=== PATIENT | female | born 1960 | race Caucasian/White ===

== ENCOUNTER 2025-06-12 11:04 | Day surgery (SDC) | payer MEDICARE ==
[2025-06-05 10:54] LABS: MEAN PLATELET VOLUME 7.4 FL (7.4-10.4); PRE OP HEMATOCRIT 43.7 % (35.0-45.0); PRE OP HEMOGLOBIN 14.5 g/dL (12.0-16.0); PRE OP PLATELET COUNT 262 X10'3 (140-440); PRE OP WHITE BLOOD COUNT 8.9 10'3 (4.8-10.8); RED CELL DISTRIBUTION WIDTH 17.6 % (11.5-14.5)
[2025-06-05 11:09] LABS: PRE OP INR 1.0 INR; PRE OP PARTIAL THROMB. TIME 23.0 SECONDS (22-32); PRE OP PROTIME 10.4 SECONDS (9.0-12.0)
[2025-06-05 11:28] LABS: CREATININE 0.44 MG/DL (0.40-0.90); PRE OP ALT 26 U/L (30-65); PRE OP ANION GAP 9 (8-16); PRE OP AST 14 U/L (10-37); PRE OP BILIRUB, TOTAL 0.5 MG/DL (0.0-1.0); PRE OP GLUCOSE 87 MG/DL (70-104); PRE OP POTASSIUM 3.8 MMOL/L (3.4-5.1); PRE OP SODIUM 136 MMOL/L (135-145); TOTAL CARBON DIOXIDE 26.5 MMOL/L (24-32); eGFR > 90 ML/MIN
[2025-06-12] VITALS (22 sets, daily range): BP systolic 142–201; BP diastolic 78–114; PULSE 81–108; RESP 10–16; TEMP 97.3; O2SAT 91–100
[~2025-06-12] VITALS: Ht 154.9 cm; Wt 83.1 kg
[2025-06-12] MEDS: ceFAZolin 2gm/dext,iso 50mL 50 ML IV ONE (05:30)
[~2025-06-12 11:04] MED LIST: DEXA1TAB PO; LEVE750T PO; LOSA25TA41 PO; albuterol 2.5 MG/3 ML nebule NEB ONE
[2025-06-12] MEDS ORDERED: LIDOcaine 1% (10mg/ml)w/preservative inj. 20ml MDV ONE (11:13)
[2025-06-12] MEDS ORDERED: BUPIVAcaine/PF 2.5mg/ml (0.25%) 10ml vial ONE (11:14)
[2025-06-12] MEDS ORDERED: BUPIVACAINE liposomal/PF 13.3 MG/ML 10mL vial IM ONE (11:14)
[2025-06-12] MEDS: ringers solution, lacted 1,000 ML IV SCH (12:25)
[2025-06-12] MEDS ORDERED: albuterol 2.5 MG/3 ML nebule NEB ONE (12:30)
--- NOTE | 2025-06-12 13:10 | ELECTROCARDIOGRAPH REPORT ---
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 DON Blue Measurements Intervals [place] Rate: 78 P: 69 IN: 163 QRS: 17 QRSD: 89 T: 33 QT: 381 QTc: 434 Interpretive Statements Sinus rhythm Probable left atrial enlargement RSR' in V1 or V2, right VCD or RVH Borderline T abnormalities, anterior leads Electronically Signed On 06-12-2025 16:30:[address] DON Blue Please click the below link to view image of tracing.
[2025-06-12] MEDS ORDERED: meperidine/PF 25mg/ml syringe IV PRN (13:30)
[2025-06-12] MEDS ORDERED: ringers solution, lacted 1,000 ML IV SCH (13:30)
[2025-06-12] MEDS ORDERED: HYDROmorphone/PF 0.2 MG/ML SYRINGE IV PRN ×2 (13:30)
[2025-06-12] MEDS ORDERED: fentaNYL/PF 50MCG/1 ML 2ML syringe ONE ×2 (14:28→15:23)
[2025-06-12] MEDS ORDERED: dexamethasone sod phosphate 4mg/ml inj. ONE (14:44)
[2025-06-12] MEDS ORDERED: ePHEDrine 50MG/ML INJ. ONE (14:44)
[2025-06-12] MEDS ORDERED: midazolam 1 mg/ML 2ml injection ONE (14:44)
[2025-06-12] MEDS ORDERED: LIDOcaine 2% (20mg/ml) 5ml vial ONE (14:45)
[2025-06-12] MEDS ORDERED: propofol inj 20 ML IV ONE (14:45)
[2025-06-12] MEDS ORDERED: ondansetron/PF 4mg/2ml inj ONE (14:45)
[2025-06-12] MEDS: labetalol 20mg/4ml (5mg/ml) syringe IV PRN (15:53)
[2025-06-12] MEDS: fentaNYL/PF 50MCG/1 ML 2ML syringe IV PRN ×2 (15:57→16:08)
[2025-06-12] MEDS: hydrALAZINE 20mg/ml inj. IV PRN (16:15)
[2025-06-12] MEDS: acetaminophen 1,000mg/100ml IV 100 ML IV PRN (16:28)
[2025-06-12] MEDS: ondansetron/PF 4mg/2ml inj IV PRN (16:48)
--- NOTE | 2025-06-12 17:24 | OPERATIVE REPORT ---
Operative Report Providers to ~ Date of Procedure: Jun 12, 2025 Pre-Operative Diagnosis: Left anterior wall mass, left anterior skin tag Post-Operative Diagnosis SAME as PRE-Op Procedure Performed Excision of left anterior chest skin tag, excision of left anterior chest wall neoplasm. Surgeon: Bhavik Howe DO Paper Stripper None Anesthesiologist: Muna Hightower Findings: As per operative dictation Complications None Estimated Blood Loss: Less than 5 cc Specimen Removed: 1) Left chest skin tag 2) Left anterior chest wall mass Description of Procedure: 65 years old female presents for excision of left anterior chest wall mass and excision of left chest skin tag. The risks and benefits of the planned procedure were presented including but not limited to infection, bleeding, recurrence and non resolution of signs and symptoms. She was given the opportunity to ask questions and all her questions were answered to her satisfaction and present time. After informed consent was obtained, patient received a dose of prophylactic IV antibiotics. Patient then brought to the operating room placed in a supine position. After general LMA anesthesia was administered, sequential compression devices were placed on lower extremities. The whole left anterior chest was prepped and draped as per usual sterile OR technique. The skin tag was addressed first. Excision was performed using sharp dissection with a 15 blade scalpel. Hemostasis was controlled using Bovie cautery. The incision was then closed with interrupted 3-0 nylon horizontal mattress suture. The large left anterior chest wall mass was addressed. Greatest dimension approximately 3 cm. A vertical elliptical incision to include the skin of the mass was drawn. A 15 blade scalpel was then used to make the incision down to the subcutaneous layer. Careful dissection continued to completely excise the mass. The mass did not involve the fascia of the pectoralis muscle. Hemostasis was controlled using Bovie cautery as well as LigaSure device. The excised mass was marked with suture. Short suture for superior margin, long suture for lateral margin, and double stitch for deep margin. This was sent for specimen. Next undermining was performed to allow for adequate approximation of the skin. The subcutaneous layer was approximated using interrupted 3-0 Vicryl sutures. The skin incision was closed with combination of 3-0 nylon horizontal mattress sutures as well as 4-0 nylon interrupted sutures. Mastisol and Steri-Strips were placed, followed by 4 x 4 dressing and Tegaderm. Steri-Strips, and a Band- Aid was placed over the skin tag incision. Patient tolerated procedure well, was extubated and brought to the PACU in stable condition. Counts repoted as correct: Yes BHAVIK HOWE DO Jun 12, 2025 17:24
[2025-06-12] MEDS: scopolamine 1MG/72H patch 1 PATCH PATCH.TD.3 TD SCH (17:37)
[2025-06-12] MEDS: HYDROcodone/acetaminophen 5mg/325mg tablet PO ONE (17:48)
== END 2025-06-12 18:04 | disposition home or self-care (01) ==
LOC: PRE-OP 11:04
PROVIDERS: ATTEND Surgery
DX: L91.8 Other hypertrophic disorders of the skin (principal); R22.2 Localized swelling, mass and lump, trunk; L72.0 Epidermal cyst; I10 Essential (primary) hypertension; J44.9 Chronic obstructive pulmonary disease, unspecified; Z87.891 Personal history of nicotine dependence; Z79.82 Long term (current) use of aspirin; Z79.899 Other long term (current) drug therapy; Z98.890 Other specified postprocedural states; Z88.5 Allergy status to narcotic agent
CPT/HCPCS: 11200; 11403; 36415; 80053; 82948; 85025; 85610; 85730; 88304; 93005; A4215; A4618; A6250; A6253; A6258; A6402; A6449; A7000; J0131; J0360; J0666; J0690; J0780; J1100; J2003; J2175; J2250; J2405; J2704; J3010; J3490; J7030; J7120; Z7506; Z7508; Z7512; Z7610